=== PATIENT | male | born 1980 | race Caucasian/White ===

== ENCOUNTER 2016-04-06 14:17 | Emergency (ER) | payer MEDICAID ==
--- NOTE | 2016-04-13 09:34 | ER ---
ADMIT: 04/06/2016 RM/LOC: ER [facility] MR#: [id number] [address] [id number] ANTONELLA OLMEDO [address] [address] Emergency Room Report SEX: M AGE: 36 : 1980 DATE: 04/06/2016 ADDENDUM: This patient comes into the ER because he has pain in the right side of his back that he said its goes around to the front of his abdomen and it is worse with movement. He said at times it spasms and he feels lightheaded. He denies any injury. Denies any difficulty urinating. On physical exam, the pain seems to be in the right flank area, and when he points, he points to his right groin area. His CBC and BMP were normal and his urinalysis was negative for any blood. I gave him Toradol 60 mg and he felt quite a bit better. I wrote a prescription for Toradol and Flexeril, and we will have him follow up with his doctor in a week if not better. Please see my T-sheet. JOHN Guidry / Chaz Lin MD / vishnu JOB #: [id number] CC: Chaz Lin MD, Attending Physician
== END 2016-04-06 16:55 | disposition home or self-care (01) ==
LOC: ER 14:17
DX: R10.31 Right lower quadrant pain (principal)